=== PATIENT | male | born 1990 | race Caucasian/White ===

== ENCOUNTER → 2021-07-07 | Outpatient (CLI) | payer BC ==
[~2021-07-07] MED LIST: IOHEXOL 180 MG/ML 10 ML VIAL. ONE; [UNRECOGNIZED DRUG - REMARK]; methylPREDNISolone ACETATE 80 MG/ML VIAL. ONE
--- NOTE | 2021-07-07 08:52 | PDOC1 ---
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 but the pain is increasing now in the base the neck and right shoulder radiating to right arm posterior aspect of the scapula as well as into the lateral deltoid into the forearm and wrist also the hand patient reports weakness in the left arm with dropping a coffee cup about a week ago but otherwise did not notice any overt motor loss patient reports is worse with raising his head over his hand on the right side disturbed sleep about once or twice a night does not affect his bowel bladder control or ability to walk but is difficult with repetitive motions socially weightbearing and reaching forward patient reports is constant sharp stabbing throbbing shooting radiating the right upper extremity as well as aching in the neck and shoulder. Patient has been doing chiropractic treatments which help but not completely relieve the pain patient is taking prednisone which by about 50% improvement also tizanidine which is not significantly helpful. Patient rates disability rating 0-10 10 being the worst is a 6 with family home responsibilities 10 with recreation and occupational activities to a social activities 5 with sexual haven 3 with self-care and 5 with life support activities. PAST MEDICAL HISTORY: PMH: No major medical problems or conditions PREVIOUS SURGERIES: Past Surgical Hx: [place] teeth extraction CURRENT MEDICATIONS: Current Meds: See chart ALLERGIES; Allergies: Coded Allergies: No Known Drug Allergies (Unverified , 07/07/21) FAMILY HISTORY: Family Hx: No major medical problems or conditions he is aware of. SOCIAL HISTORY: Social Hx: Patient is alcohol 2-3 times a week does not smoke says any illegal illicit recreational drugs is single lives locally in [facility], works for [employer] REVIEW OF SYSTEMS: ROS: Positive for those items mentioned in history of present illness, all systems are reviewed, otherwise negative ,and are complete full and well-documented on patient's chart. PHYSICAL EXAM: VS: Blood pressure is 157/89 pulse 76 respirations 16 temperature is 98.2 F height is 5 foot 8 inches weight is 149 pounds PE: PHYSICAL EXAMINATION: GENERAL: The patient is awake, alert, oriented, appropriate, very pleasant in demeanor HEENT: Shows normocephalic, atraumatic. Extraocular movements are intact and symmetrical. Oral cavity: Mucous membranes moist and pink. Dentition is intact. NECK: Shows anterior throat supple without palpable lymphadenopathy noted. Swallow reflex symmetrical. CHEST: Shows normal on inspection. Breath sounds are clear bilaterally, no rales rhonchi or wheeze auscultated. HEART: Shows S1, S2 clear. No murmurs auscultated. ABDOMEN: Soft, nontender, nondistended. No palpable organomegaly is noted. No rebound or guarding demonstrated. BACK: Shows spine grossly in the midline. Normal-appearing cervical lordotic curvature. Cervical paraspinous muscles show symmetrical inspection, palpation some mild tenderness diffusely in the inferior aspects of the paraspinous posture more in the right than the left into the superior medial trapezius as well but without trigger points without radiation without asymmetry. Patient has good rotation motion cervical spine with some moderate tenderness with far right lateral rotation past 45 degrees as well as extension but not with forward flexion or left lateral rotation past 45 degrees. There is slightly increased thoracic kyphosis, some minor flattening of the lumbar lordotic curvature. EXTREMITIES: Upper extremities show deep tendon reflexes 2 in the biceps and triceps tendons. Motor exam is 5 on a scale of 5 with right delicate fabrics presser, biceps and triceps flexion and 5/5 on the left. Peripheral pulses are 2+ radial. No peripheral edema is noted bilaterally. Upper extremities are warm and dry to touch, equal in color and appearance. SKIN: Shows warm and dry, good turgor. No edema. No sores, rashes or bruising throughout. IMPRESSION: Impression: 30-year-old male with approximate 4-month history of pain base the neck right upper extremity in a radicular fashion MRI scan cervical spine showing C5-6 large right paracentral disc bulge supe rimposed protrusion resulting in moderate to severe right neuroforaminal stenosis and mild central canal stenosis Plan: Options were discussed with patient including conservative management continued physical therapies and chiropractor treatment as well as interventional techniques. Patient would like to pursue interventional techniques. We discussed a cervical epidural steroid injections description as well as anatomical models to describe the procedure. Risks were discussed including but not limited to: Bleeding, infection, possibility of epidural hematoma and subsequent neurological compromise, dural puncture, headaches, spin al cord and/or nerve damage, side effects of steroid medication, and poor results regarding pain control. Patient understands and wished to proceed. Patient return to the clinic in approximate 2 weeks for follow-up, was counseled as return appointment, activity level, and side effect to wear. Procedure cervical epidural steroid injection at the C6-7 level, using local anesthetic under sterile prep and drape using C-arm fluoroscopic guidance under local anesthesia medications injected ;120 mg Depo-Medrol +5 mL normal saline and 2 mL contrast; condition at discharge is stable patient tolerated procedure well. and had no complications TREVIN HILTON MD Jul 07, 2021 08:52
--- NOTE | 2021-07-07 08:52 | PDOC4 ---
Procedure Note: ICD 10 Code: ICD 10 Code: M54.12 M50.30 M 48.02 Procedure Note: Patient was consented for cervical epidural steroid injection with fluoroscopic guidance. Risks were discussed including but not limited to: Bleeding, infection, possibility of epidural hematoma and subsequent neurological compromise, dural puncture, headaches, spinal cord and/or nerve damage, side effects of steroid medication, and poor results regarding pain control. Patient understands and wished to proceed. Procedure cervical epidural steroid injection at the C6-7 level, using local anesthetic under sterile prep and drape using C-arm fluoroscopic guidance under local anesthesia medications injected ;120 mg Depo-Medrol +5 mL normal saline and 2 mL contrast; condition at discharge is stable patient tolerated procedure well. and had no complications TREVIN HILTON MD Jul 07, 2021 08:52
== END | disposition home or self-care (01) ==
LOC: PNCL 07:58
PROVIDERS: ATTEND Anesthesiology
DX: M50.10 Cervical disc disorder with radiculopathy, unspecified cervical region (principal); M48.02 Spinal stenosis, cervical region; M79.601 Pain in right arm; Z79.899 Other long term (current) drug therapy
CPT/HCPCS: 62321; G0463; J1040; Q9965

== ENCOUNTER → 2021-09-10 | Outpatient (CLI) | payer BC ==
[~2021-09-10] MED LIST changes: +methylPREDNISolone ACETATE 40 MG/ML VIAL. ONE; -methylPREDNISolone ACETATE 80 MG/ML VIAL. ONE
--- NOTE | 2021-09-10 14:08 | PDOC ---
Progress Note - Pain Clinic Date of Service: DOS: DATE: 09/10/21 TIME: 14:05 Diagnosis: Dx: Cervical radiculopathy with cervical degenerative disease and cervical spinal stenosis History or Present Illness: HPI: 31-year-old male returns for follow-up status post cervical epidural steroid injection x1. Patient reports he did very well with near 95% improvement the pain in his base of neck and right upper extremity which is been returning now only moderately over the past a week or so patient reports about 2 months of decreased pain with the pain returning now also with a new pain in the base of the neck and into the left shoulder at the top of the shoulder base of the neck but mostly still on the right side patient reports is radiating further into the right side into the posterior deltoid posterior triceps biceps into the forearm patient rates as a 6 on scale 10 is worse over the past week 5 on average 5 its least is a 5 today patient reports no new motor or sensory deficit has patient has been very active with working in the [employer] 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 Patient reports no new motor or sensory deficits over the points. Patient reports his headaches are decreased significantly and the intensity is decreased even more so. Physical Exam: VS: Blood pressure is 124/71 pulse 80 respirations 18 temperature 98.2 F height is 5 feet 7 inches weight is 152 pounds PE: PHYSICAL EXAMINATION: GENERAL: The patient is awake, alert, oriented, appropriate, very pleasant in demeanor HEENT: Shows normocephalic, atraumatic. Extraocular movements are intact and symmetrical. Oral cavity: Mucous membranes moist and pink. Dentition is intact. NECK: Shows anterior throat supple without palpable lymphadenopathy noted. Swallow reflex symmetrical. CHEST: Shows normal on inspection. Breath sounds are clear bilaterally, distant but no rales or rhonchi. HEART: Shows S1, S2 clear. No murmurs auscultated. ABDOMEN: Soft, nontender, nondistended. No palpable organomegaly is noted. BACK: Shows spine grossly in the midline. Normal-appearing cervical lordotic curvature. Cervical paraspinous muscles show symmetrical inspection, palpation some moderate tenderness diffusely going diffusely without significant radiation patient is full rotation motion cervical spine with lateral as well as full extension full forward flexion without difficulty. There is slightly increased thoracic kyphosis, some minor flattening of the lumbar lordotic curvature. EXTREMITIES: Upper extremities show deep tendon reflexes 2+ in the patellar and tendo calcaneus tendons. Motor exam is 5 on a scale of 5 with right dorsiflexion, extension, quadriceps and hamstring flexion and 5/5 on the left. Peripheral pulses are 2+ posterior tibial. No peripheral edema is noted bilaterally. Upper extremities are warm and dry to touch, equal in color and appearance. Shoulder shrug is strong and intact without loss of strength on resistance bilaterally. SKIN: Shows warm and dry, good turgor. No edema. No sores, rashes or bruising throughout. Procedure: Procedure: Options were discussed with patient. Patient's old chart was reviewed his current medication regimen updated review of systems updated today as well. We will proceed with a cervical epidural steroid injection today with fluoroscopic guidance. Risks were discussed including but not limited to: Bleeding, infection, possibility of epidural hematoma and subsequent neurological comp romise, dural puncture, headaches, spinal cord and/or nerve damage, side effects of steroid medication, and poor results regarding pain control. Patient understands and wished to proceed. Patient will return to the clinic in approximate 2 weeks for follow-up, was counseled as return appointment, activity level, and side effects to be aware of. Medication Injected: Med Injected: Procedure cervical epidural steroid injection at the C6-7 level, using local anesthetic under sterile prep and drape using C-arm fluoroscopic guidance under local anesthesia medications injected ;120 mg Depo-Medrol +5 mL normal saline and 2 mL contrast; condition at discharge is stable patient tolerated procedure well. and had no complications Condition at Discharge: Condition at Discharge: Condition at discharge is stable, patient Willem the procedure well and had no complications. TREVIN HILTON MD Sep 10, 2021 14:08
--- NOTE | 2021-09-10 14:09 | PDOC4 ---
Procedure Note: ICD 10 Code: ICD 10 Code: M51.12 MFive 0.30 M4 8.02 Procedure Note: Patient was consented for cervical epidural steroid injection with fluoroscopic guidance. Risks were discussed including but not limited to: Bleeding, infection, possibility of epidural hematoma and subsequent neurological compromise, dural puncture, headaches, spinal cord and/or nerve damage, side effects of steroid medication, and poor results regarding pain control. Patient understands and wished to proceed. Procedure cervical epidural steroid injection at the C6-7 level, using local anesthetic under sterile prep and drape using C-arm fluoroscopic guidance under local anesthesia medications injected ;120 mg Depo-Medrol +5 mL normal saline and 2 mL contrast; condition at discharge is stable patient tolerated procedure well. and had no complications TREVIN HILTON MD Sep 10, 2021 14:09
== END | disposition home or self-care (01) ==
LOC: PNCL 13:43
PROVIDERS: ATTEND Anesthesiology
DX: M50.10 Cervical disc disorder with radiculopathy, unspecified cervical region (principal); M48.02 Spinal stenosis, cervical region
CPT/HCPCS: 62321; J1030; Q9965

== ENCOUNTER → 2021-12-21 | Outpatient (CLI) | payer BC ==
[~2021-12-21] MED LIST changes: +DEXAMETHASONE PRES.FREE 10 MG/ML VIAL. ONE; -methylPREDNISolone ACETATE 40 MG/ML VIAL. ONE
--- NOTE | 2021-12-21 10:38 | PDOC ---
Progress Note - Pain Clinic Date of Service: DOS: DATE: 12/21/21 TIME: 10:34 Diagnosis: Dx: Cervical radiculopathy with cervical degenerative disc disease and cervical spinal stenosis History or Present Illness: HPI: 31-year-old male returns for follow-up last seen September 2021 after cervical epidural steroid injections very well with about 80% improvement which lasted until the last 2 weeks or so patient reports he began having pain without the result of any specific injury or accident in the upper extremities now in both upper extremities as opposed to more on the right side which she had previously patient reports is. Both the arms just a strong as it was to the point of excruciating pain about a week ago where he had to rest his head against the wall of the shower to get any relief patient reports pain is a 10 on scale 10 is worse over the past week 7-8 on average 3-4 to [place] is a 4 today patient reports aching and sharp shooting in the upper extremities into the shoulders posterior deltoids triceps into the forearms and hands also the anterior aspect and lateral aspects of both the upper extremities to the hands and fingers of numbness and tingling in all the angers and thumbs patient reports is radiating constant on and off with intensity worse with activity reaching repetitive motions weightbearing weight lifting reaching forward with weight in the arms as well. Patient reports no loss of motor function but significant fatigability in the upper extremities bilaterally at this time. Physical Exam: VS: Blood pressure is 134/73 pulse 71 respirations 16 temperature 98.6 F height is 5 foot 7 inches weight is 151 pounds. PE: PHYSICAL EXAMINATION: GENERAL: The patient is awake, alert, oriented, appropriate, very pleasant in demeanor HEENT: Shows normocephalic, atraumatic. Extraocular movements are intact and symmetrical. Oral cavity: Mucous membranes moist and pink. Dentition is intact. NECK: Shows anterior throat supple without palpable lymphadenopathy noted. Swallow reflex symmetrical. CHEST: Shows normal on inspection. Breath sounds are clear bilaterally, no rales or rhonchi auscultated. HEART: Shows S1, S2 clear. No murmurs auscultated. ABDOMEN: Soft, nontender, nondistended. No palpable organomegaly is noted. BACK: Shows spine grossly in the midline. Normal-appearing cervical lordotic curvature. Cervical paraspinous muscles show symmetrical inspection on palpation some moderate tenderness diffusely in the inferior aspect the cervical paraspinous muscle slightly more on the right than the left and present bilaterally without trigger points without radiation. Patient shows good rotation of motion of the cervical spine with some moderate tenderness with past 45 degrees left lateral rotation right also tender with extension but not forward flexion. There is slightly increased thoracic kyphosis, some minor flattening of the lumbar lordotic curvature. EXTREMITIES: Upper extremities show deep tendon reflexes 2+ in the patellar and tendo calcaneus tendons. Motor exam is 5 on a scale of 5 with right dorsiflexion, extension, quadriceps and hamstring flexion and 5/5 on the left. Peripheral pulses are 2+ posterior tibial. No peripheral edema is noted bilaterally. Upper extremities are warm and dry to touch, equal in color and appearance. Shoulder shrug strong intact without loss of strength on resistance as is abduction of the shoulders 90 degrees bilaterally. SKIN: Shows warm and dry, good turgor. No edema. No sores, rashes or bruising throughout. Procedure: Procedure: Options were discussed with patient. Patient's chart was reviewed his current medication regimen updated current review of systems updated today as well. We will proceed with a cervical epidural steroid injection today with fluoroscopic guidance. Risks were discussed including but not limited to: Bleeding, infection, possibility of epidural hematoma and subsequent neurological compromise, dural puncture, headaches, spinal cord and/or nerve damage, side effects of steroid medication, and poor results regarding pain control. Patient understands and wished to proceed. Patient will return to clinic in approximately 2 weeks for follow-up, was counseled as to return appointment, activity level, and side effects to be aware of. Medication Injected: Med Injected: Procedure cervical epidural steroid injection at the C6-7 level, using local anesthetic under sterile prep and drape using C-arm fluoroscopic guidance under local anesthesia medications injected ; 20 mg dexamethasone +5 mL normal saline and 2 mL contrast; condition at discharge is stable patient tolerated procedure well. and had no complications Condition at Discharge: Condition at Discharge: Condition at discharge stable, patient tolerated the procedure well and had no complications. TREVIN HILTON MD Dec 21, 2021 10:38
--- NOTE | 2021-12-21 10:39 | PDOC4 ---
Procedure Note: ICD 10 Code: ICD 10 Code: M54.12 M50.30 M4 8.02 Procedure Note: Patient was consented for cervical epidural steroid injection with fluoroscopic guidance. Risks were discussed including but not limited to: Bleeding, infection, possibility of epidural hematoma and subsequent neurological compromise, dural puncture, headaches, spinal cord and/or nerve damage, side effects of steroid medication, and poor results regarding pain control. Patient understands and wished to proceed. Procedure cervical epidural steroid injection at the C6-7 level, using local anesthetic under sterile prep and drape using C-arm fluoroscopic guidance under local anesthesia medications injected ; 20 mg dexamethasone +5 mL normal saline and 2 mL contrast; condition at discharge is stable patient tolerated procedure well. and had no complications TREVIN HILTON MD Dec 21, 2021 10:39
== END | disposition home or self-care (01) ==
LOC: PNCL 08:43
PROVIDERS: ATTEND Anesthesiology
DX: M50.10 Cervical disc disorder with radiculopathy, unspecified cervical region (principal); M54.12 Radiculopathy, cervical region; M48.02 Spinal stenosis, cervical region; Z79.899 Other long term (current) drug therapy
CPT/HCPCS: 62321; J1100; Q9965